=== PATIENT | female | born 1985 | race Caucasian/White ===

== ENCOUNTER 2021-11-08 14:00 | Inpatient (IN) | payer OTHER ==
[2021-11-08] VITALS (7 sets, daily range): BP systolic 117–135; BP diastolic 65–100
[~2021-11-08] VITALS: Ht 162 cm; Wt 85.4 kg
[2021-11-08 15:04] LABS: BILIRUBIN,URINE NEGATIVE (NEGATIVE); CLARITY,URINE SL CLOUDY; COLOR,URINE YELLOW; GLUCOSE, URINE (UA) NEGATIVE (NEGATIVE); KETONES,URINE NEGATIVE (NEGATIVE); LEUKOCYTE ESTERASE ,URINE TRACE (NEGATIVE); NITRITE,URINE NEGATIVE (NEGATIVE); PROTEIN,URINE NEGATIVE (NEGATIVE)
[2021-11-08 15:20] LABS: BACTERIA,URINE TRACE /HPF; RBC,URINE 0-2 /HPF
[2021-11-08 15:37] LABS: AMPHETAMINE SCREEN, URINE NEGATIVE (NEGATIVE); BARBITURATE SCREEN URINE NEGATIVE (NEGATIVE); BENZODIAZEPINES SCREEN URINE NEGATIVE (NEGATIVE); CANNABINOID SCREEN, URINE NEGATIVE (NEGATIVE); COCAINE SCREEN URINE NEGATIVE (NEGATIVE); METHADONE STAT NEGATIVE (NEGATIVE); OPIATE SCREEN URINE NEGATIVE (NEGATIVE); OXYCODONE STAT NEGATIVE (NEGATIVE); PROPOXYPHENE STAT NEGATIVE (NEGATIVE); TRICYCLIC ANTIDEPRESSANTS SCRE NEGATIVE (NEGATIVE)
[2021-11-08 15:43] LABS: BASOPHILS # (AUTO) 0.1 10^3/uL (0.0-0.1); BASOPHILS % (AUTO) 1 % (0-10); EOSINOPHILS # (AUTO) 1.7 10^3/uL (0.0-0.3); EOSINOPHILS % (AUTO) 10 % (0-10); HEMATOCRIT 39 % (35-52); HEMOGLOBIN 12.3 g/dL (11.5-16.0); LYMPHOCYTES # (AUTO) 2.6 X 10^3 (1.0-4.0); LYMPHOCYTES % (AUTO) 16 % (12-44); MEAN CORPUSCULAR HEMOGLOBIN 29 pg (25-34); MEAN CORPUSCULAR HGB CONC 32 g/dL (32-36); MEAN CORPUSCULAR VOLUME 91 fL (80-99); MEAN PLATELET VOLUME 10.2 fL (9.0-12.2); MONOCYTES # (AUTO) 0.8 X 10^3 (0.0-1.0); MONOCYTES % (AUTO) 5 % (0-12); NEUTROPHILS % (AUTO) 68 % (42-75); PLATELET COUNT 305 10^3/uL (130-400); WHITE BLOOD COUNT 16.1 10^3/uL (4.3-11.0)
[2021-11-08 16:14] LABS: BASOPHILS % (MANUAL) 1 %; EOSINOPHILS % (MANUAL) 9 %; LYMPHOCYTES % (MANUAL) 19 %; MONOCYTES % (MANUAL) 7 %; NEUTROPHILS % (MANUAL) 64 %; RBC MORPH NORMAL
--- NOTE | 2021-11-08 16:20 | Diagnostic Imaging Report ---
INDICATION: No care. TECHNIQUE: Multiple real-time grayscale images were obtained over the gravid uterus. COMPARISON: None. FINDINGS: A howe viable IUP is in cephalic position. Amniotic fluid index is 5.5. Placenta is anterior with no abruption or previa. heart rate is 138 BPM. Due to the advanced age, the anatomical survey was limited with suboptimal interrogation of the cord, its insertion, as well as the brain and ventricular system. No anatomic abnormality is revealed. Measurements correlate with an age 39 weeks 2 days with sonographic date of confinement of 11/13/2021. IMPRESSION: Anterior placenta. No abruption or previa. 39 weeks 2 days howe viable IUP with no pathological finding identified but advanced age limits the anatomical survey, as discussed. Biometrical measurements are as follows: Biparietal 9.58 cm, age 39 weeks 1 days. Head circumference 34.40 cm, age 39 weeks 6 days. Abdominal circumference 33.62 cm, age 37 weeks 4 days. Femur length 7.90 cm, age 40 weeks 3 days. Sonographic estimate age: 39 weeks 2 days. Sonographic estimated date of delivery: 11/13/2021. Estimated Weight: 3557 gm (+/- 520 gm). LMP percentile: NA%. heart rate: 138 beats per minute. number: 1 of 1. Dictated by: Dictated on workstation # [id number]
[2021-11-08] MEDS ORDERED: METOCLOPRAMIDE INJ 10 MG/2 ML (REGLAN) IV ONE (17:45)
[2021-11-08] MEDS ORDERED: FAMOTIDINE 20MG/2ML IV (PEPCID) IV ONE (17:45)
[2021-11-08] MEDS ORDERED: LACTATED RINGERS 1,000 ML IV PRN ×2 (17:45)
[2021-11-08] MEDS ORDERED: CATHETER FLUSH 10 ML SYR IV PRN (17:45)
[2021-11-08] MEDS ORDERED: CITRIC ACID/SOB CIT (BICITRA) 30 ML UDC PO ONE (17:45)
--- NOTE | 2021-11-08 17:57 | History & Physical-OB ---
OB - Chief Complaint & HPI Date/Time Date of Admission: Date of Admission: November 08, 2021 at 17:07 Date seen by a Provider: November 08, 2021 Time Seen by a Provider: 17:47 Chief Complaint/History OB-Reason for Admission/Chief: Obstetrical Complication (Oligohydramnios, no care) Hx : 2 Hx Para: 1 Expected Date of Delivery: November 13, 2021 Gestational Age in Weeks: 39 Gestational Age in Days: 2 Admission Nurse Assessment Rev: Yes Allergies and Home Medications Allergies Coded Allergies: No Known Drug Allergies (Unverified , 11/08/21) Patient Home Medication List Home Medication List Reviewed: Yes OB - History Hx of Present Care: No Ultrasounds: No ultrasounds Obstetrical Complications: Other (Oligohydramnios noted on US today, No care) Medical Complications: None Information Induced Hypertension: No Maternal Gestational Diabetes: No Hemorrhage: No Obstetrical History Hx : 2 Hx Para: 1 Hx Termination: No Hx Multiple Gestation: No Hx Ectopic : No Hx Stillbirth: No Hx Complication: No Hx Induced Hypertens: Yes Hx Maternal Gestational Diabet: No Hx Hemorrhage: No Delivery History Hx Dystocia: No Hx Forceps Assisted Delivery: No Hx Vacuum Extraction Assisted: No Hx Placenta Abnormality: Yes Hx Distress: No Hx Large For Gestational Age I: No Hx Small for Gestational Age I: No Hx Section: Yes Hx Vaginal Delivery Post C-Sec: No Hx Blood Disorders: No Adverse Rxn to Tranfusion: No Patient Past Medical History AMA, h/o PIH, no care Social History/Family History Alcohol Use: Denies Use Recreational Drug Use: No 2nd Hand Smoke Exposure: Yes OB - Admission Exam Physical Exam Vitals: Vital Signs 11/08/21 11/08/21 11/08/21 15:53 16:10 16:15 Temp 36.4 Pulse 97 Resp 20 B/P (MAP) 119/74 (89) Pulse Ox 99 O2 Delivery Room Air Kaiser Scoring Tool (Modified) Dilation (cm): 3-4cm (2) Effacement (%): 80-100% (3) Descent/Station: -3 (0) Labs Laboratory Tests Test 11/08/21 14:50 11/08/21 15:25 Range/Units Urine Color YELLOW Urine Clarity SL CLOUDY Urine pH 6.0 5-9 Urine Specific [place] 1.015 L 1.016-1.022 Urine Protein NEGATIVE NEGATIVE Urine Glucose (UA) NEGATIVE NEGATIVE Urine Ketones NEGATIVE NEGATIVE Urine Nitrite NEGATIVE NEGATIVE Urine Bilirubin NEGATIVE NEGATIVE Urine Urobilinogen 1.0 < = 1.0 MG/DL Urine Leukocyte Esterase TRACE H NEGATIVE Urine RBC (Auto) 3+ H NEGATIVE Urine RBC 0-2 /HPF Urine WBC 10-25 H /HPF Urine Squamous Epithelial Cells 5-10 /HPF Urine Crystals NONE /LPF Urine Bacteria TRACE /HPF Urine Casts NONE /LPF Urine Mucus NEGATIVE /LPF Urine Culture Indicated YES Urine Opiates Screen NEGATIVE NEGATIVE Urine Oxycodone Screen NEGATIVE NEGATIVE Urine Methadone Screen NEGATIVE NEGATIVE Urine Propoxyphene Screen NEGATIVE NEGATIVE Urine Barbiturates Screen NEGATIVE NEGATIVE Ur Tricyclic Antidepressants Screen NEGATIVE NEGATIVE Urine Phencyclidine Screen NEGATIVE NEGATIVE Urine Amphetamines Screen NEGATIVE NEGATIVE Urine Methamphetamines Screen NEGATIVE NEGATIVE Urine Benzodiazepines Screen NEGATIVE NEGATIVE Urine Cocaine Screen NEGATIVE NEGATIVE Urine Cannabinoids Screen NEGATIVE NEGATIVE White Blood Count 16.1 H 4.3-11.0 10^3/uL Red Blood Count 4.30 3.80-5.11 10^6/uL Hemoglobin 12.3 11.5-16.0 g/dL Hematocrit 39 35-52 % Mean Corpuscular Volume 91 80-99 fL Mean Corpuscular Hemoglobin 29 25-34 pg Mean Corpuscular Hemoglobin Concent 32 32-36 g/dL Red Cell Distribution Width 14.3 10.0-14.5 % Platelet Count 305 130-400 10^3/uL Mean Platelet Volume 10.2 9.0-12.2 fL Immature Granulocyte % (Auto) 0 % Neutrophils (%) (Auto) 68 42-75 % Lymphocytes (%) (Auto) 16 12-44 % Monocytes (%) (Auto) 5 0-12 % Eosinophils (%) (Auto) 10 0-10 % Basophils (%) (Auto) 1 0-10 % Neutrophils # (Auto) 11.0 H 1.8-7.8 X 10^3 Lymphocytes # (Auto) 2.6 1.0-4.0 X 10^3 Monocytes # (Auto) 0.8 0.0-1.0 X 10^3 Eosinophils # (Auto) 1.7 H 0.0-0.3 10^3/uL Basophils # (Auto) 0.1 0.0-0.1 10^3/uL Immature Granulocyte # (Auto) 0.1 0.0-0.1 10^3/uL Neutrophils % (Manual) 64 % Lymphocytes % (Manual) 19 % Monocytes % (Manual) 7 % Eosinophils % (Manual) 9 % Basophils % (Manual) 1 % Blood Morphology Comment NORMAL OB - Assessment/Plan/Diagnosis Assessment Admission Dx Hi Vega is a 36yo at 39.2wga by 39.2wk US who presented to L&D with complaints of bloody vaginal discharge. She reported no care during this due to the fact that she just moved to [place] and she has having a hard time taking care of herself in her previous home of record ([facility]). She reports a h/o primary with her last due to induced hypertension 1.5 years ago. She denies any other medical or surgical history. She denies contractions, LOF or VB and reports normal movement. O: VS - Last 72 Hours, by Label 11/08/21 11/08/21 11/08/21 11/08/21 14:40 15:10 15:53 16:04 Temp 36.4 36.4 Pulse 98 91 98 89 Resp 20 20 20 20 B/P (MAP) 129/80 (96) 117/65 (82) 124/100 (108) Pulse Ox 99 97 99 99 O2 Delivery Room Air Room Air Room Air Room Air 11/08/21 11/08/21 16:10 16:15 Pulse 97 97 Resp 20 20 B/P (MAP) 119/74 (89) Pulse Ox 98 99 O2 Delivery Room Air Room Air Laboratory Tests Test 11/08/21 14:50 11/08/21 15:25 Range/Units Urine Color YELLOW Urine Clarity SL CLOUDY Urine pH 6.0 5-9 Urine Specific [place] 1.015 L 1.016-1.022 Urine Protein NEGATIVE NEGATIVE Urine Glucose (UA) NEGATIVE NEGATIVE Urine Ketones NEGATIVE NEGATIVE Urine Nitrite NEGATIVE NEGATIVE Urine Bilirubin NEGATIVE NEGATIVE Urine Urobilinogen 1.0 < = 1.0 MG/DL Urine Leukocyte Esterase TRACE H NEGATIVE Urine RBC (Auto) 3+ H NEGATIVE Urine RBC 0-2 /HPF Urine WBC 10-25 H /HPF Urine Squamous Epithelial Cells 5-10 /HPF Urine Crystals NONE /LPF Urine Bacteria TRACE /HPF Urine Casts NONE /LPF Urine Mucus NEGATIVE /LPF Urine Culture Indicated YES Urine Opiates Screen NEGATIVE NEGATIVE Urine Oxycodone Screen NEGATIVE NEGATIVE Urine Methadone Screen NEGATIVE NEGATIVE Urine Propoxyphene Screen NEGATIVE NEGATIVE Urine Barbiturates Screen NEGATIVE NEGATIVE Ur Tricyclic Antidepressants Screen NEGATIVE NEGATIVE Urine Phencyclidine Screen NEGATIVE NEGATIVE Urine Amphetamines Screen NEGATIVE NEGATIVE Urine Methamphetamines Screen NEGATIVE NEGATIVE Urine Benzodiazepines Screen NEGATIVE NEGATIVE Urine Cocaine Screen NEGATIVE NEGATIVE Urine Cannabinoids Screen NEGATIVE NEGATIVE White Blood Count 16.1 H 4.3-11.0 10^3/uL Red Blood Count 4.30 3.80-5.11 10^6/uL Hemoglobin 12.3 11.5-16.0 g/dL Hematocrit 39 35-52 % Mean Corpuscular Volume 91 80-99 fL Mean Corpuscular Hemoglobin 29 25-34 pg Mean Corpuscular Hemoglobin Concent 32 32-36 g/dL Red Cell Distribution Width 14.3 10.0-14.5 % Platelet Count 305 130-400 10^3/uL Mean Platelet Volume 10.2 9.0-12.2 fL Immature Granulocyte % (Auto) 0 % Neutrophils (%) (Auto) 68 42-75 % Lymphocytes (%) (Auto) 16 12-44 % Monocytes (%) (Auto) 5 0-12 % Eosinophils (%) (Auto) 10 0-10 % Basophils (%) (Auto) 1 0-10 % Neutrophils # (Auto) 11.0 H 1.8-7.8 X 10^3 Lymphocytes # (Auto) 2.6 1.0-4.0 X 10^3 Monocytes # (Auto) 0.8 0.0-1.0 X 10^3 Eosinophils # (Auto) 1.7 H 0.0-0.3 10^3/uL Basophils # (Auto) 0.1 0.0-0.1 10^3/uL Immature Granulocyte # (Auto) 0.1 0.0-0.1 10^3/uL Neutrophils % (Manual) 64 % Lymphocytes % (Manual) 19 % Monocytes % (Manual) 7 % Eosinophils % (Manual) 9 % Basophils % (Manual) 1 % Blood Morphology Comment NORMAL A/P: 36yo at 39.2wga by 39.2wk US with newly diagnosed oligohydramnios on formal US (JOELLE of 5.5). Patient is AMA with no care during this and has a history of with her last . She will require delivery by . Will plan to complete at 0700 tomorrow morning as the procedure is not emergent. # Oligohydramnios: Patient is just barely meeting the criteria for oligohydramnios, but given her AMA, no care status, I will plan to proceed with at this time. Patient will have procedure completed in the morning. # labs collected. Will contact the patient's last OBGYN's office for her records from the previous . # Vaginal discharge: wet prep and UA sent. Wet prep concerning for BV and yeast. Will treat with flagyl 500mg BID for 7 days and diflucan 150mg once. # Diet: regular diet with plans for NPO status at midnight with IVF. # DVT ppx: SCDs in place. # Dispo: will plan for repeat in the morning at 0730. Admission Status: Inpatient Order (span 2 midnights) Reason for Inpatient Admission: Patient will require repeat due to oligohydramnios noted at 39 wga in the setting of no care. Plan Plan: Section Discharge Diagnosis Diagnosis: 39 weeks of No care h/o prior AMA Oligohydramnios LIZZY BOB MD November 08, 2021 17:57
[2021-11-08] MEDS ORDERED: fluCOnazole (DIFLUCAN) 100 MG TAB PO ONE (18:15)
[2021-11-08 21:13] LABS: HEPATITIS C ANTIBODY C Non-Reactive (Non-Reactive)
[2021-11-08] MEDS: metroNIDAZOLE 500 MG (FLAGYL) TAB PO SCH (23:32)
[2021-11-09] VITALS (9 sets, daily range): BP systolic 98–151; BP diastolic 53–129
[2021-11-09] MEDS ORDERED: D5 LR IV SOLUTION 1,000 ML IV SCH
[2021-11-09] MEDS ORDERED: CITRIC ACID/SOB CIT (BICITRA) 30 ML UDC ONE (05:34)
[2021-11-09] MEDS ORDERED: METOCLOPRAMIDE INJ 10 MG/2 ML (REGLAN) ONE (05:35)
[2021-11-09] MEDS ORDERED: FAMOTIDINE 20MG/2ML IV (PEPCID) ONE (05:35)
[2021-11-09] MEDS ORDERED: AZITHROMYCIN INJECTION 500 MG in NS (IVPB) 250 ML IV ONE (07:00)
[2021-11-09] MEDS ORDERED: ceFAZolin 2 GM IV Premixed 50 ML IV ONE (07:00)
[2021-11-09] MEDS ORDERED: OXYTOCIN PRE-MIX DRIP 1,000 ML IV ONE (07:14)
[2021-11-09] MEDS ORDERED: ONDANSETRON 4 MG/2 ML (SDV) Z0FRAN ONE (07:14)
[2021-11-09] MEDS ORDERED: fentaNYL INJ 100 MCG/2 ML AMP ONE (07:14)
[2021-11-09] MEDS ORDERED: PHENYLEPHRINE 100 MCG/ML 10 ML (ANESTHESIA) SYR ONE (07:50)
[2021-11-09] MEDS ORDERED: BUPIVACAINE 0.25% 10 ML (SENSORCAINE) VIAL ONE (07:50)
[2021-11-09] MEDS ORDERED: METHYLERGONOVINE 0.2 MG/ML (METHERGINE) AMP ONE (08:03)
[2021-11-09] MEDS ORDERED: KETOROLAC 30 MG/ML VIAL ONE (08:16)
[2021-11-09] MEDS: KETOROLAC 15 MG/ML VIAL IV SCH ×3 (08:35→21:12)
--- NOTE | 2021-11-09 09:10 | Cesarean Section Operative ---
Procedure Procedure Note Pre-operative Diagnosis: Zane Vega is a 36yo /Para 2 / 1, Gestational Age (wks)39.3 by 39.2wk US with oligohydramnios. Post-operative Diagnosis: same Procedure: repeat low transverse section Physician: LIZZY MCDANIEL Estimated blood loss: 600 mL Disposition: stable Findings: Viable male , Apgars 8,9, weight 7#6, intact placenta, 3vc, normal appearing uterus, tubes, and ovaries. A 8.5 x 8.5 cm subserosal fibroid was noticed along the left cornua. Indications: Zane Vega is a (36 /Para 2 / 1,Gestational Age (wks)39 presenting for complaints of blood vaginal discharge. She was noted to be AMA, have a h/o pLTCS due to PIH in her previous pregancy, but did not recieve care in this . She was unsure of her LMP and so a dating US was completed and demonstrated that she was 39.2wga with an JOELLE of 5.5cm. labs were collected. She was not found to be in labor and was started on flagyl for a BV infection. Given her inability to establish care and the concern for oligohydramnios, the decision was made to keep the patient in house for a repeat section the following day. Procedure Details: The patient was seen in pre-op and the procedure was discussed with the patient in full, including the risks, benefits, and alternatives. All questions were answered. The patient was taken to the operating room and a time out was performed, verifying patient and procedure. After spinal anesthesia was placed by our anesthesia colleagues, the patient was placed in the dorsal supine with leftward tilt for uterine displacement.~ Her abdomen was then prepped and draped in the typical sterile fashion. A Pfannenstiel skin incision was made using a scalpel and carried down through the underlying fascia. The fascia was incised in the midline and tented up using Kika clamps. On both the inferior and superior fascia side the rectus muscle was dissected off bluntly and sharply using Cordero scissors. The peritoneum was identified and entered bluntly in the midline. This was then stretched laterally using manual strength. After entering the abdominal cavity and confirming lack of intraperitoneal adhesions, a large Yasmany retractor was placed and the lower uterine segment was visualized. A bladder flap was created with the use of Metzenbaum scissors. A scalpel was utilized to make a low transverse uterine incision. Clear fluid was noted with amniotomy. The 's head was grasped and brought to the level of the incision. Fundal pressure was applied and infant was delivered without difficulty. Mouth and nares were suctioned with bulb suction. After the umbilical cord was clamped and cut, the was handed off to the pediatric staff. A sample of cord blood was then obtained. The placenta was delivered intact via uterine massage. The uterus was exteriorized and cleared of all clots and debris. The uterine incision was closed using 0 Chromic in a running locked fashion. The uterus was flexed forward and the posterior rectouterine space was inspected and cleared of all clots and debris. The uterus was noted to be slightly boggy and the decision was made to administer 0.2mg of IM Methergine to assist with uterine tone. This was found to be effective. Again the hysterotomy site was examined and hemostasis was observed. The bilateral tubes and ovaries appeared normal; however an 8.5 x 8.5 subserosal fibroid was noted along the left cornua. The uterus was placed back into the abdominal cavity and abdominal gutters were cleared of all clots and debris. A final check of the uterine incision showed it to be hemostatic. The rectus muscles were re-approximated using 2-0 Chromic suture in a running fashion. The fascia was closed with 0 Vicryl in a running fashion. The subcutaneous space was hemostatic, and irrigated. The subcutaneous space was closed with 2-0 Chromic in several single interrupted stitches. The skin was then closed using 4-0 Monocryl in a running subcuticular fashion. The skin edges were reapproximated together and were hemostatic. A pressure dressing was applied. All sponge, lap and needle counts were correct at the end of the procedure per nursing. She was expressed of clots from the uterus and 1000mcg of cytotec was placed rectally. Dr. Mcdaniel was present for the entire case. Vitals - Labs Vital Signs - I&O Vital Signs Date Time Temp Pulse Resp B/P (MAP) Pulse Ox O2 Delivery O2 Flow Rate FiO2 11/09/21 06:30 36.2 77 20 122/58 (79) 98 Room Air 11/09/21 00:00 36.4 78 20 121/66 (84) 100 Room Air 11/08/21 20:00 36.4 100 20 124/72 (89) Room Air 11/08/21 16:40 77 20 135/73 (93) 99 Room Air 11/08/21 16:15 97 20 99 Room Air 11/08/21 16:10 97 20 119/74 (89) 98 Room Air 11/08/21 16:04 89 20 124/100 (108) 99 Room Air 11/08/21 15:53 36.4 98 20 99 Room Air 11/08/21 15:10 91 20 117/65 (82) 97 Room Air 11/08/21 14:40 36.4 98 20 129/80 (96) 99 Room Air I & O 11/09/21 07:00 Intake Total 850 ml Balance 850 ml Labs Laboratory Tests 11/08/21 14:50: Urine Color YELLOW, Urine Clarity SL CLOUDY, Urine pH 6.0, Urine Specific [place] 1.015L, Urine Protein NEGATIVE, Urine Glucose (UA) NEGATIVE, Urine Ketones NEGATIVE, Urine Nitrite NEGATIVE, Urine Bilirubin NEGATIVE, Urine Uro bilinogen 1.0, Urine Leukocyte Esterase TRACEH, Urine RBC (Auto) 3+H, Urine RBC 0-2, Urine WBC 10-25H, Urine Squamous Epithelial Cells 5-10, Urine Crystals NONE, Urine Bacteria TRACE, Urine Casts NONE, Urine Mucus NEGATIVE, Urine Culture Indicated YES, Urine Opiates Screen NEGATIVE, Urine Oxycodone Screen NEGATIVE, Urine Methadone Screen NEGATIVE, Urine Propoxyphene Screen NEGATIVE, Urine Barbiturates Screen NEGATIVE, Ur Tricyclic Antidepressants Screen NEGATIVE, Urine Phencyclidine Screen NEGATIVE, Urine Amphetamines Screen NEGATIVE, Urine Methamphetamines Screen NEGATIVE, Urine Benzodiazepines Screen NEGATIVE, Urine Cocaine Screen NEGATIVE, Urine Cannabinoids Screen NEGATIVE 11/08/21 15:25: White Blood Count 16.1H, Red Blood Count 4.30, Hemoglobin 12.3, Hematocrit 39, Mean Corpuscular Volume 91, Mean Corpuscular Hemoglobin 29, Mean Corpuscular Hemoglobin Concent 32, Red Cell Distribution Width 14.3, Platelet Count 305, Mean Platelet Volume 10.2, Immature Granulocyte % (Auto) 0, Neutrophils (%) (Auto) 68, Lymphocytes (%) (Auto) 16, Monocytes (%) (Auto) 5, Eosinophils (%) (Auto) 10, Basophils (%) (Auto) 1, Neutrophils # (Auto) 11.0H, Lymphocytes # (Auto) 2.6, Monocytes # (Auto) 0.8, Eosinophils # (Auto) 1.7H, Basophils # (Auto) 0.1, Immature Granulocyte # (Auto) 0.1, Neutrophils % (Manual) 64, Lymphocytes % (Manual) 19, Monocytes % (Manual) 7, Eosinophils % (Manual) 9, Basophils % (Manual) 1, Blood Morphology Comment NORMAL, Syphilis Serology Non- Reactive, Hepatitis B Surface Antibody Index <8.00L, Hepatitis Bs Antibody Interpret Non-Immune, Hepatitis C Antibody Non-Reactive, HIV (1&2) Ag and Ab Screen Referral Non-Reactive, Rubella IgG Antibody 1.38H, Rubella IgG Ab Interpretation PositiveH Microbiology 11/08/21 Genital Culture, Resulted Pending 11/08/21 Wet Prep - Final, Resulted LIZZY MCDANIEL MD November 09, 2021 09:10
--- NOTE | 2021-11-09 09:13 | Discharge Inst-Simple/Standard ---
Discharge Inst-Standard Reconcile Patient Problems Problems Reviewed?: Yes Discharge Medications New, Converted or Re-Newed RX: Transmitted to Pharmacy Patient Instructions/Follow Up Plan of Care/Instructions/FU: Follow-up in office for a 1 week incision check. Activity as Tolerated: Yes Discharge Diet: No Restrictions LIZZY BOB MD November 09, 2021 09:13
[2021-11-09] MEDS ORDERED: ONDANSETRON 4 MG/2 ML (SDV) Z0FRAN IV PRN (09:15)
[2021-11-09] MEDS ORDERED: NALOXONE 0.4 MG/ML 1 ML (NARCAN) VIAL IV PRN ×3 (09:15)
[2021-11-09] MEDS ORDERED: TETANUS,DIPTH,PERTUSS P/F (BOOSTRIX) 0.5 ML VIAL IM SCH (09:15)
[2021-11-09] MEDS ORDERED: morphine INJ 10 MG/ML 1ML (SYR OR VIAL) IVP ONE (09:15)
[2021-11-09] MEDS ORDERED: MEASLES,MUMPS,RUBELLA 1 EA INJ SC SCH (09:15)
[2021-11-09] MEDS ORDERED: morphine INJ 4 MG/ML 1 ML (VIAL/SYRINGE) IV PRN (09:15)
[2021-11-09] MEDS ORDERED: diphenhydrAMINE 50 MG/ML INJ (BENADRYL) IV PRN (09:15)
[2021-11-09] MEDS ORDERED: ONDANSETRON 4 MG/2 ML (SDV) Z0FRAN IVP PRN (09:15)
[2021-11-09] MEDS ORDERED: METOCLOPRAMIDE INJ 10 MG/2 ML (REGLAN) IV PRN (09:15)
[2021-11-09] MEDS ORDERED: DOCU-143 PO (09:16)
[2021-11-09] MEDS ORDERED: ACET500P24 PO (09:16)
[2021-11-09] MEDS ORDERED: ONDA4TAB11 PO (09:16)
[2021-11-09] MEDS ORDERED: FERR-74 PO (09:16)
[2021-11-09] MEDS ORDERED: OXYC5TAB PO (09:16)
[2021-11-09] MEDS ORDERED: IBUP-1773 PO (09:16)
[2021-11-09] MEDS ORDERED: METR375C PO (09:17)
[2021-11-09] MEDS: metroNIDAZOLE 500 MG (FLAGYL) TAB PO SCH ×2 (10:31→21:12)
[2021-11-09] MEDS ORDERED: CATHETER FLUSH 10 ML SYR IV SCH (14:00)
[2021-11-09] MEDS: ACETAMINOPHEN 500 MG TAB (TYLENOL) PO SCH ×2 (14:23→22:32)
[2021-11-09] MEDS: DOCUSATE SODIUM 100 MG (COLACE) CAP PO SCH (21:12)
[2021-11-10 00:23] VITALS: BP 99/56
[2021-11-10] MEDS: KETOROLAC 15 MG/ML VIAL IV SCH (03:19)
[2021-11-10 03:23] VITALS: BP 104/61
[2021-11-10] MEDS: ACETAMINOPHEN 500 MG TAB (TYLENOL) PO SCH ×3 (05:48→21:48)
[2021-11-10 06:01] LABS: BASOPHILS # (AUTO) 0.1 10^3/uL (0.0-0.1); BASOPHILS % (AUTO) 1 % (0-10); EOSINOPHILS # (AUTO) 1.8 10^3/uL (0.0-0.3); EOSINOPHILS % (AUTO) 10 % (0-10); HEMATOCRIT 27 % (35-52); HEMOGLOBIN 8.9 g/dL (11.5-16.0); LYMPHOCYTES # (AUTO) 3.3 10^3/uL (1.0-4.0); LYMPHOCYTES % (AUTO) 18 % (12-44); MEAN CORPUSCULAR HEMOGLOBIN 29 pg (25-34); MEAN CORPUSCULAR HGB CONC 33 g/dL (32-36); MEAN CORPUSCULAR VOLUME 89 fL (80-99); MEAN PLATELET VOLUME 10.2 fL (9.0-12.2); MONOCYTES # (AUTO) 1.3 10^3/uL (0.0-1.0); MONOCYTES % (AUTO) 7 % (0-12); NEUTROPHILS # (AUTO) 11.9 10^3/uL (1.8-7.8); NEUTROPHILS % (AUTO) 64 % (42-75); PLATELET COUNT 246 10^3/uL (130-400); WHITE BLOOD COUNT 18.5 10^3/uL (4.3-11.0)
[2021-11-10] MEDS: DOCUSATE SODIUM 100 MG (COLACE) CAP PO SCH ×2 (08:29→21:48)
[2021-11-10] MEDS: IBUPROFEN 600 MG (MOTRIN) TAB PO SCH ×3 (08:29→21:48)
[2021-11-10] MEDS: metroNIDAZOLE 500 MG (FLAGYL) TAB PO SCH ×2 (08:29→21:48)
[2021-11-10 08:30] VITALS: BP 121/70
--- NOTE | 2021-11-10 10:38 | Anesthesia-Regional Post-Op ---
Regional Patient Condition Mental Status: Alert, Oriented x3 Circulation: Same as Pre-Op Headache: Absent Sensation: Full Recovery Motor Block: Absent Post Op Complications Complications None Follow Up Care/Instructions Patient Instructions None needed. Anesthesia/Patient Condition Patient is doing well, no complaints, stable vital signs, no apparent adverse anesthesia problems. No complications reported per nursing. D/C home per [facility] Criteria: Yes ARNOL DE LOS SANTOS CRNA November 10, 2021 10:38
[2021-11-10] MEDS ORDERED: IBUPROFEN 600 MG (MOTRIN) TAB PO SCH (12:00)
--- NOTE | 2021-11-10 14:59 | Progress Note ---
Standard Progress Note Progress Notes/Assess & Plan Date Seen by a Provider: November 10, 2021 Time Seen by a Provider: 14:59 Progress/Assessment & Plan This patient is postop day 1 from a repeat delivery performed by Dr. Mcdaniel. Patient is ambulating, voiding, tolerating oral intake well has good pain control. Vital Signs Date Time Temp Pulse Resp B/P (MAP) Pulse Ox O2 Delivery O2 Flow Rate FiO2 11/10/21 08:30 36.4 85 18 121/70 (87) 99 Room Air 11/10/21 03:23 36.6 76 18 104/61 (75) 98 Room Air 11/10/21 00:23 36.5 74 16 99/56 (70) 97 Room Air 11/09/21 20:08 36.3 101 18 112/71 (85) 99 Room Air 11/09/21 16:35 36.8 84 18 113/63 (80) 97 Room Air I & O 11/10/21 07:00 Intake Total 2000 ml Output Total 550 ml Balance 1450 ml Vital signs are stable. Patient is afebrile. Fundus is firm below the umbilicus and nontender. Extremities show no clubbing or cyanosis. There is no Homans' sign. Assessment and plan Postop day #1 status post repeat doing well. Plan is for routine convalescent care today and consider discharge home tomorrow LAY GALICIA MD November 10, 2021 14:59
[2021-11-10 16:00] VITALS: BP 119/66
[2021-11-10 21:55] VITALS: BP 113/64
[2021-11-11] MEDS: IBUPROFEN 600 MG (MOTRIN) TAB PO SCH ×2 (03:02→08:30)
[2021-11-11 03:09] VITALS: BP 113/70
[2021-11-11] MEDS: ACETAMINOPHEN 500 MG TAB (TYLENOL) PO SCH (06:06)
[2021-11-11] MEDS: metroNIDAZOLE 500 MG (FLAGYL) TAB PO SCH (08:30)
[2021-11-11] MEDS: DOCUSATE SODIUM 100 MG (COLACE) CAP PO SCH (08:30)
[2021-11-11 08:33] VITALS: BP 117/71
--- NOTE | 2021-11-11 09:31 | Progress Note ---
Standard Progress Note Progress Notes/Assess & Plan Date Seen by a Provider: November 11, 2021 Time Seen by a Provider: 09:30 Progress/Assessment & Plan This patient is postop day 1 from a repeat delivery performed by Dr. Mcdaniel. Patient is ambulating, voiding, tolerating oral intake well has good pain control. Vital Signs Date Time Temp Pulse Resp B/P (MAP) Pulse Ox O2 Delivery O2 Flow Rate FiO2 11/10/21 08:30 36.4 85 18 121/70 (87) 99 Room Air 11/10/21 03:23 36.6 76 18 104/61 (75) 98 Room Air 11/10/21 00:23 36.5 74 16 99/56 (70) 97 Room Air 11/09/21 20:08 36.3 101 18 112/71 (85) 99 Room Air 11/09/21 16:35 36.8 84 18 113/63 (80) 97 Room Air I & O 11/10/21 07:00 Intake Total 2000 ml Output Total 550 ml Balance 1450 ml Vital signs are stable. Patient is afebrile. Fundus is firm below the umbilicus and nontender. Extremities show no clubbing or cyanosis. There is no Homans' sign. Assessment and plan Postop day #1 status post repeat doing well. Plan is for routine convalescent care today and consider discharge home tomorrow November 11, 2021 Patient is without complaint. She is ambulating, voiding, tolerating oral intake well has good pain control. Patient is requesting discharge home. Vital Signs Date Time Temp Pulse Resp B/P (MAP) Pulse Ox O2 Delivery O2 Flow Rate FiO2 11/11/21 08:33 36.4 78 18 117/71 (86) 100 Room Air 11/11/21 03:09 36.3 76 18 113/70 (84) 98 Room Air 11/10/21 21:55 36.4 82 18 113/64 (80) 99 Room Air 11/10/21 16:00 36.5 76 18 119/66 (83) 98 Room Air I & O 11/11/21 07:00 Intake Total 600 ml Output Total 300 ml Balance 300 ml Vital signs are stable. Patient is afebrile. Fundus is firm below the umbilicus and nontender. Extremities show no clubbing or cyanosis. There is no Homans' sign. Assessment and plan Postoperative day #2 status post repeat delivery doing well. Plan is for discharge home with follow-up in clinic Final Diagnosis Term repeat LAY GALICIA MD November 11, 2021 09:31
--- NOTE | 2021-11-11 09:35 | Discharge Summary ---
Discharge Summary 39-week repeat This patient is a 36-year-old 2 para 1 at the time of admission C- section 1 female with no local physician who presented with complaint of bloody vaginal discharge. Dr. Mcdaniel admitted her and evaluated her and found that she had oligohydramnios and in light of that and her advanced maternal age decided to proceed with delivery which was done on November 09. On November 10 postoperative day #1 this patient was doing well she is ambulating, voiding, tolerating oral intake and had good pain control. Now on November 11 which is postoperative day #2 patient again is doing well she is ambulating voiding tolerating oral intake has good pain control and is requesting discharge home. Principal diagnosis for this hospitalization is 39-week repeat delivery Secondary diagnoses are oligohydramnios, Previous ,Bacterial vaginosis, urinary tract infection,Advanced maternal age. Patient was given appropriate discharge instructions verbally and in writing and a copy of those are in her chart. Discharge medications are per the discharge orders per LAY Nuñez MD November 11, 2021 09:35
[2021-11-11 13:10] VITALS: BP 117/71
== END 2021-11-11 13:10 | disposition home or self-care (01) | DRG 786 ==
LOC: WSo 14:00 → LDRP 14:02 → WSo 17:07 → LDRP 17:07
PROVIDERS: ADMIT Obstetrics & Gynecology; ATTEND Obstetrics & Gynecology
PROC: 10D00Z1 Extraction of Products of Conception, Low, Open Approach (ICD-10-PCS; principal; 2021-11-09 07:19)
DX: O34.211 Maternal care for low transverse scar from previous cesarean delivery (principal); O75.3 Other infection during labor; O41.03X0 Oligohydramnios, third trimester, not applicable or unspecified; O23.43 Unspecified infection of urinary tract in pregnancy, third trimester; Z3A.39 39 weeks gestation of pregnancy; Z37.0 Single live birth
CPT/HCPCS: 36415; 76805; 80306; 81000; 85007; 85025; 85027; 86703; 86706; 86762; 86780; 86803; 86850; 86900; 86901; 87070; 87088; 87205; 87210; 87491; 87529; 87591; 94664; 99212